=== PATIENT | female | born 1975 | race Hispanic/Latino ===

== ENCOUNTER 2017-09-07 20:29 | Emergency (ER) | payer MEDICAID ==
[2017-09-07] MEDS ORDERED: CEFAZOLIN SODIUM 1 GM VIAL ONE ×2 (21:21→21:34)
[2017-09-07 21:31] LABS: BASOPHILS % (AUTO) 0.4 % (0.0-5.0); EOSINOPHILS % (AUTO) 2.1 % (0.0-8.0); HEMATOCRIT 42.9 % (36-48); LYMPHOCYTES % (AUTO) 38.6 % (21.0-51.0); MEAN CORPUSCULAR HEMOGLOBIN 30.2 pg (27.0-33.0); MEAN CORPUSCULAR VOLUME 88.9 fL (79-99); MONOCYTES % (AUTO) 7.8 % (3.0-13.0); NEUTROPHILS % (AUTO) 51.1 % (40.0-77.0); PLATELET COUNT (AUTO) 192 K/uL (130-400); RED BLOOD CELL COUNT(AUTO) 4.82 MIL/uL (4.00-5.50); RED CELL DISTRIBUTION WIDTH 14.2 % (11.0-15.5); WHITE BLOOD COUNT (AUTO) 9.9 K/uL (4.8-10.8)
[2017-09-07 21:34] LABS: CREATININE 0.8 mg/dL (0.5-1.5); POTASSIUM 4.2 mmol/L (3.5-5.1)
[2017-09-07 21:39] LABS: ALBUMIN 4.2 g/dL (3.5-5.0); BILIRUBIN,TOTAL 0.2 mg/dL (0.2-1.0); TOTAL PROTEIN, SERUM 7.9 g/dL (6.0-8.3)
[2017-09-07] MEDS ORDERED: LIDOCAINE HCL 1% 20 ML VIAL ONE (23:36)
[2017-09-08] MEDS ORDERED: TETANUS/DIPHTHERIA TOXOID [ADULT] 0.5 ML VIAL IM ONE (00:08)
== END 2017-09-08 00:30 | disposition home or self-care (01) ==
LOC: EDH 20:29
DX: S51.812A Laceration without foreign body of left forearm, initial encounter (principal); S90.412A Abrasion, left great toe, initial encounter; S90.411A Abrasion, right great toe, initial encounter; S30.811A Abrasion of abdominal wall, initial encounter; E07.9 Disorder of thyroid, unspecified; Z72.0 Tobacco use; W18.39XA Other fall on same level, initial encounter; Y93.89 Activity, other specified; Y92.89 Other specified places as the place of occurrence of the external cause; Y99.8 Other external cause status
CPT/HCPCS: 12032; 36415; 73090; 80053; 85025; 90471; 90714; 96365; 99285; A4218; J0690 ×2

== ENCOUNTER 2017-10-17 16:27 | Emergency (ER) | payer MEDICAID ==
[2017-10-17 17:31] LABS: APPEARANCE,URINE Clear (CLEAR); BILIRUBIN,URINE Negative (NEGATIVE); COLOR,URINE Yellow (YELLOW); GLUCOSE, URINE (UA) Negative (NEGATIVE); KETONES,URINE Negative (NEGATIVE); LEUKOCYTE ESTERASE ,URINE Small (NEGATIVE); NITRATE,URINE Negative (NEGATIVE); OCCULT BLOOD,URINE Negative (NEGATIVE); PH,URINE 5.5 (5.0-8.0); PROTEIN,URINE Negative (NEGATIVE)
[2017-10-17 17:34] LABS: HCG,QUAL RESULT POSITIVE (NEGATIVE)
[2017-10-17 17:43] LABS: BACTERIA,URINE Few /HPF (None Seen); MUCUS,URINE Few LPF (None Seen); RBC,URINE None Seen /HPF (0-1); SQUAMOUS EPITHELIAL CELL,UR 0-2 /HPF (0-2)
[2017-10-17 17:57] LABS: BASOPHILS % (AUTO) 0.7 % (0.0-5.0); EOSINOPHILS % (AUTO) 2.8 % (0.0-8.0); HEMATOCRIT 38.5 % (36-48); MEAN CORPUSCULAR HEMOGLOBIN 30.1 pg (27.0-33.0); MEAN CORPUSCULAR HGB CONC 33.8 g/dL (32.0-36.0); MEAN CORPUSCULAR VOLUME 89.1 fL (79-99); MONOCYTES % (AUTO) 7.8 % (3.0-13.0); NEUTROPHILS % (AUTO) 50.7 % (40.0-77.0); PLATELET COUNT (AUTO) 203 K/uL (130-400); RED BLOOD CELL COUNT(AUTO) 4.33 MIL/uL (4.00-5.50); RED CELL DISTRIBUTION WIDTH 14.1 % (11.0-15.5); WHITE BLOOD COUNT (AUTO) 7.8 K/uL (4.8-10.8)
[2017-10-17 18:05] LABS: CREATININE 0.8 mg/dL (0.5-1.5); POTASSIUM 4.3 mmol/L (3.5-5.1)
== END 2017-10-17 19:23 | disposition home or self-care (01) ==
LOC: EDH 16:27
DX: O36.80X0 Pregnancy with inconclusive fetal viability, not applicable or unspecified (principal); Z3A.01 Less than 8 weeks gestation of pregnancy; Z72.0 Tobacco use
CPT/HCPCS: 36415; 76801; 80048; 81001; 81025; 84702; 85025

== ENCOUNTER 2018-08-14 11:46 | Emergency (ER) | payer MEDICAID ==
[~2018-08-14 11:46] MED LIST: PNV1TABL17 PO
[2018-08-14 12:12] LABS: BILIRUBIN,URINE NEGATIVE (NEGATIVE); COLOR,URINE YELLOW (YELLOW); GLUCOSE, URINE (UA) NEGATIVE (NEGATIVE); KETONES,URINE NEGATIVE (NEGATIVE); LEUKOCYTE ESTERASE ,URINE MODERATE (NEGATIVE); NITRATE,URINE NEGATIVE (NEGATIVE); OCCULT BLOOD,URINE NEGATIVE (NEGATIVE); PROTEIN,URINE NEGATIVE (NEGATIVE); UROBILINOGEN,URINE 0.2 mg/dL (0.2-1.0)
[2018-08-14 12:17] LABS: HCG,QUAL RESULT NEGATIVE (NEGATIVE)
[2018-08-14 12:18] LABS: APPEARANCE,URINE SLIGHTLY CLOUDY (CLEAR)
[2018-08-14 12:47] LABS: BACTERIA,URINE Moderate /HPF (None Seen); RBC,URINE 0-1 /HPF (0-1)
== END 2018-08-14 13:17 | disposition home or self-care (01) ==
LOC: EDH 11:46
DX: N39.0 Urinary tract infection, site not specified (principal); E07.9 Disorder of thyroid, unspecified
CPT/HCPCS: 81001; 81025

== ENCOUNTER 2019-01-05 15:52 | Emergency (ER) | payer MEDICAID ==
[2019-01-05] MEDS ORDERED: LIDOCAINE 5% TOPICAL PATCH TP ONE (16:53)
== END 2019-01-05 17:06 | disposition home or self-care (01) ==
LOC: EDH 15:52
DX: S13.4XXA Sprain of ligaments of cervical spine, initial encounter (principal); E07.9 Disorder of thyroid, unspecified; V59.09XA Driver of pick-up truck or van injured in collision with other motor vehicles in nontraffic accident, initial encounter; Y93.89 Activity, other specified; Y92.89 Other specified places as the place of occurrence of the external cause; Y99.8 Other external cause status

== ENCOUNTER 2020-06-10 14:40 | Emergency (ER) | payer MEDICAID | END 2020-06-10 15:54 | disposition home or self-care (01) | LOC: EDH 14:40 | DX: R06.02 Shortness of breath (principal); R05 Cough; Z87.891 Personal history of nicotine dependence | CPT/HCPCS: 71045 ==

== ENCOUNTER → 2020-08-31 | Outpatient (CLI) | payer MEDICAID | END | disposition home or self-care (01) | LOC: RAH 10:36 | PROVIDERS: ATTEND Family Medicine | DX: K21.9 Gastro-esophageal reflux disease without esophagitis (principal) | CPT/HCPCS: 74240 ==

== ENCOUNTER 2020-10-18 19:56 | Emergency (ER) | payer MEDICAID ==
[~2020-10-18] VITALS: Ht 165.1 cm; Wt 76.7 kg
[2020-10-18 20:03] VITALS: BP 118/66
[2020-10-18] MEDS ORDERED: KETOROLAC 60 MG VIAL (30MG/ML) IM ONE (21:30)
[2020-10-18] MEDS ORDERED: CYCLOBENZAPRINE HCL 10 MG TABLET PO ONE (21:30)
[2020-10-19] MEDS ORDERED: KETOROLAC 60 MG VIAL (30MG/ML) ONE
[2020-10-19] MEDS ORDERED: CYCLOBENZAPRINE HCL 10 MG TABLET ONE (00:01)
[2020-10-19] MEDS ORDERED: MELO7.5T12 PO (00:40)
[2020-10-19] MEDS ORDERED: ORPH-43 PO (00:40)
[2020-10-19] MEDS ORDERED: LIDOP TP (00:40)
[2020-10-19 00:52] VITALS: BP 121/82
== END 2020-10-19 01:00 | disposition home or self-care (01) ==
LOC: EDH 19:56
DX: M62.838 Other muscle spasm (principal); T14.8XXA Other injury of unspecified body region, initial encounter; V49.88XA Car occupant (driver) (passenger) injured in other specified transport accidents, initial encounter; Y93.89 Activity, other specified; Y92.89 Other specified places as the place of occurrence of the external cause; Y99.8 Other external cause status
CPT/HCPCS: 36415; 72125; 72128; 72131; 84703; 96372; 99285; J1885

== ENCOUNTER → 2020-12-14 | Outpatient (CLI) | payer MEDICAID ==
[~2020-12-14] MED LIST changes: +LIDOP TP; +MELO7.5T12 PO; +ORPH-43 PO
== END | disposition home or self-care (01) ==
LOC: RAH 10:49
PROVIDERS: ATTEND Family Medicine
DX: R42 Dizziness and giddiness (principal)
CPT/HCPCS: 93880

== ENCOUNTER 2021-02-13 05:35 | Day surgery (SDC) | payer MEDICAID ==
[2021-02-12 11:17] LABS: BASOPHILS % (AUTO) 0.7 % (0.0-5.0); EOSINOPHILS % (AUTO) 3.2 % (0.0-8.0); HEMATOCRIT 38.1 % (36-48); MEAN CORPUSCULAR HEMOGLOBIN 24.8 pg (27.0-33.0); MEAN CORPUSCULAR HGB CONC 30.4 g/dL (32.0-36.0); MEAN CORPUSCULAR VOLUME 81.6 fL (79-99); NEUTROPHILS % (AUTO) 48.1 % (40.0-77.0); PLATELET COUNT (AUTO) 314 K/uL (130-400); RED BLOOD CELL COUNT(AUTO) 4.67 MIL/uL (4.00-5.50); RED CELL DISTRIBUTION WIDTH 15.2 % (11.0-15.5); WHITE BLOOD COUNT (AUTO) 5.6 K/uL (4.8-10.8)
[2021-02-13] VITALS (18 sets, daily range): BP systolic 95–129; BP diastolic 50–82
[2021-02-13] MEDS ORDERED: CEFAZOLIN SODIUM 1 GM VIAL ONE (07:23)
[2021-02-13] MEDS ORDERED: DEXAMETHASONE SOD PHOSPHATE 10MG/ML 1ML VIAL ONE (07:24)
[2021-02-13] MEDS ORDERED: GLYCOPYRROLATE 1 MG/5 ML SYRINGE ONE (07:24)
[2021-02-13] MEDS ORDERED: LIDOCAINE PF 100MG/5ML (2%) SYRINGE 5ML ONE (07:24)
[2021-02-13] MEDS ORDERED: SUCCINYLCHOLINE CHLORIDE 20 MG/ML 10 ML VIAL ONE (07:24)
[2021-02-13] MEDS ORDERED: ONDANSETRON 4MG INJ ONE (07:24)
[2021-02-13] MEDS ORDERED: NEOSTIGMINE 5MG/5ML SYR IV ONE (07:25)
[2021-02-13] MEDS ORDERED: FENTANYL CITRATE PF 50 MCG/1 ML 2ML VIAL ONE ×3 (07:25→11:53)
[2021-02-13] MEDS ORDERED: MIDAZOLAM HCL 1 MG/ML 2ML VIAL ONE ×2 (07:25→10:30)
[2021-02-13] MEDS ORDERED: ROCURONIUM 10MG/1ML SYR 10 MG/ML ML ONE (07:25)
[2021-02-13] MEDS ORDERED: PROPOFOL 10 MG/ML 20ML VIAL IV ONE (07:25)
[2021-02-13] MEDS: LACTATED RINGERS 1000ML 1,000 ML IV SCH ×5 (08:52→12:27)
[2021-02-13] MEDS ORDERED: MEPERIDINE-PF 25 MG/ML SYG ONE ×2 (12:23→12:52)
== END 2021-02-13 15:30 | disposition home or self-care (01) ==
LOC: DAH 05:35
PROVIDERS: ATTEND Obstetrics & Gynecology
DX: D27.1 Benign neoplasm of left ovary (principal); Z20.822 Contact with and (suspected) exposure to COVID-19; N83.11 Corpus luteum cyst of right ovary; N80.1 Endometriosis of ovary
CPT/HCPCS: 36415; 58661; 84703; 85025; 86850; 86900; 86901; 87635; A4215 ×3; A4216; A4221; A4222; A4223 ×3; A4351; A4606 ×2; A4649 ×3; A4663; A6260; C1769 ×3; C9803; J0330; J1100; J2175 ×2; J2250 ×2; J2405; J2710; J3010 ×3; J3490 ×3; J7030; J7120; J0690; J2001; J2704

== ENCOUNTER 2021-06-27 13:03 | Emergency (ER) | payer MEDICAID ==
[~2021-06-27] VITALS: Ht 167.6 cm; Wt 78.9 kg
[2021-06-27] MEDS ORDERED: ORPHENADRINE CITRATE 30 MG/ML ML IM ONE (16:00)
[2021-06-27] MEDS ORDERED: KETOROLAC 30MG VIAL (30MG/ML) IM ONE (16:00)
[2021-06-27] MEDS ORDERED: ORPHENADRINE CITRATE 30 MG/ML ML ONE (16:03)
[2021-06-27 17:06] VITALS: BP 128/62
[2021-06-27] MEDS ORDERED: NAPR500T6 PO (18:46)
[2021-06-27] MEDS ORDERED: CYCL10TA16 PO (18:46)
== END 2021-06-27 18:55 | disposition home or self-care (01) ==
LOC: EDH 13:03
DX: M25.552 Pain in left hip (principal); M54.50 Low back pain, unspecified; M54.2 Cervicalgia; R11.0 Nausea; G89.29 Other chronic pain; Z79.1 Long term (current) use of non-steroidal anti-inflammatories (NSAID); W01.0XXA Fall on same level from slipping, tripping and stumbling without subsequent striking against object, initial encounter; Y93.01 Activity, walking, marching and hiking; Y92.89 Other specified places as the place of occurrence of the external cause; Y99.8 Other external cause status
CPT/HCPCS: 70450; 72125; 72131; 72170; 73552; 96372 ×2; 99284; J1885; J2360